=== PATIENT | female | born 1950 | race Caucasian/White ===

== ENCOUNTER 2017-08-29 14:59 | Observation (INO) | payer SELFPAY ==
--- NOTE | 2017-08-29 15:17 | XR_ITS ---
XR chest 2V HISTORY: ITS.REASON: COPD exacerbation ORDERING PHYSICIAN: Laura Reed MD PATIENT AGE: 67 years COMPARISON: 10/31/2015 PA and lateral chest, 07/07/2016 frontal chest FINDINGS: The cardiomediastinal silhouette and pulmonary vascularity are within normal limits. No lobar consolidation or collapse. There are old right-sided rib fractures. No lobar consolidation or collapse is evident. There is mild exaggeration of thoracic kyphosis with severe wedging involving T7 which is unchanged from the exam of 10/31/2015. There is new severe wedging of T9 which has developed since that exam. There is also moderate wedging of T5 present on the previous exam IMPRESSION: 1. No acute cardiac or pulmonary pathology. 2. Severe wedging of T7 and T9. The T9 wedging has developed since an older lateral radiograph of 10/31/2015. MRI may be of further value to determine age of the fractures and any possible cord compression
[2017-08-29 15:19] VITALS: BMI 28.8
[2017-08-29 15:25] VITALS: BP 152/97; PULSE 88; RESP 24; TEMP 36.1; O2SAT 92
--- NOTE | 2017-08-29 15:31 | HMH.HP ---
*Admission Date: 08/29/17 <Christina Pérez 08/29/17 15:32> *Chief complaint: SOA <Christina Pérez 08/29/17 15:32> *History of present illness: Ms. Fontana is a 67yo female who presented to the office of A today and has been out of her medications for a month. She has COPD and is on 2L of oxygen at home. She has had SOA and wheezing. Her sats have been in the 80's on RA. It was 87% on RA today in the office and she was placed on oxgyen. She has no insurance. She states she cannot afford portable oxygen. She was admitted with a COPD exacerbation and hypoxia. <Christina Pérez 08/29/17 17:24> [facility] History Medical History: Reports:: Cancer, Chronic Obstructive Pulmonary Disease (COPD), Diabetes Mellitus Type 2, Hypertension, Osteoporosis <Christina Pérez 08/29/17 17:24> Laterality Cases: Left: Lumpectomy <Christina Pérez 08/29/17 17:24> Other Surgeries: Yes: Appendectomy <Christina Pérez 08/29/17 17:24> Comment: Cholecystectomy, tubal ligation, sinus sx, lipoma removed left axilla, barium swallow <Christina Pérez 08/29/17 17:24> - *Social History Smoking Status: Former smoker <Christina Pérez 08/29/17 17:24> Tobacco Type: cigarettes <Christina Pérez 08/29/17 17:24> - Psychiatric History Expresses thoughts of harming self/others: None <Christina Pérez 08/29/17 15:32> Suicide Plan Description: No Plan <Christina Pérez 08/29/17 15:32> *Family Hx:: Cancer, Diabetes, Heart Attack, Hyperlipidemia, Hypertension, Stroke <Christina Pérez 08/29/17 17:24> Review of Systems - Constitutional Reports fatigue, Reports weakness, Denies fever(s) <Christina Pérez 08/29/17 17:24> - Eyes Denies blurry vision, Denies double vision <Christina Pérez 08/29/17 17:24> - ENT Denies nasal congestion, Denies sore throat <Christina Pérez - 08/29/17 17:24> - *Cardiovascular Denies chest pain <Christina Pérez 08/29/17 17:24> - *Respiratory Reports shortness of breath, Reports wheezing <Christina Pérez 08/29/17 17:24> - *Gastrointestinal Denies abdominal pain, Denies nausea, Denies vomiting <Christina Pérez 08/29/17 17:24> - *Genitourinary Denies difficulty urinating, Denies painful urination <Christina Pérez 08/29/17 17:24> - *Musculoskeletal Denies joint pain <Christina Pérez 08/29/17 17:24> - *Neurologic Reports weakness, Denies headache(s) <Christina Pérez 08/29/17 17:24> - Psychiatric Reports anxiety <Christina Pérez 08/29/17 17:24> Meds Home Medications Medication Instructions Recorded Confirmed Type Aspirin [Aspir 81] 81 mg PO DAILY 09/01/17 09/01/17 History <Mina Onofre - 10/13/17 21:43> Allergies Allergy/AdvReac Type Severity Reaction Status Date / Time Sulfa (Sulfonamide Allergy Mild Verified 08/29/17 18:48 Antibiotics) [SULFA (SULFONAMIDE ANTIBIOTICS)] <Mina Onofre - 10/13/17 21:43> Exam Vital signs and Labs for Last 24 Hours: Temp Pulse Resp BP Pulse Ox 97.0 F L 88 22 152/97 92 L 08/29/17 15:25 08/29/17 15:25 08/29/17 17:31 08/29/17 15:25 08/29/17 15:25 Laboratory Results - last 24 hr 08/29/17 15:15: WBC 7.4, RBC 5.10, Hgb 15.1, Hct 46.4, MCV 90.9, MCH 29.7, MCHC 32.6, RDW 12.8, Plt Count 323, MPV 7.5, Neut % (Auto) 54.8, Lymph % (Auto) 28.5, [place] % (Auto) 4.1, Eos % (Auto) 11.2, Baso % (Auto) 1.4, Neut # (Auto) 4.1, Lymph # (Auto) 2.1, [place] # (Auto) 0.3, Eos # (Auto) 0.8 H, Baso # (Auto) 0.1 08/29/17 15:15: Sodium 144, Potassium 4.6, Chloride 106, Carbon Dioxide 32, Anion Gap 10.6, BUN 10, Creatinine 0.79, Estimated Creat Clear 55, Estimated GFR 72, Est GFR ( Amer) 88, Glucose 111 H, Calcium 9.2, Total Bilirubin 0.4, AST 12 L, ALT 20, Alkaline Phosphatase 112, Total Protein 7.6, Albumin 4.0, Globulin 3.6 H, Albumin/Globulin Ratio 1.1 <Mina Onofre - 10/13/17 21:43> Temp Pulse Resp BP Pulse Ox 97.0 F L 88 24 152/97 92 L 08/29/17 15:25 08/29/17 15:25 08/29/17 15:25 08/29/17 15:25
--- NOTE | 2017-08-29 15:37 | PC.NURSE ---
PATIENT STATES SHE STOPPED TAKING ALL OF HER MEDS EXCEPT A BREATHING TREATMENT 3 WEEKS AGO
[2017-08-29 15:44] LABS: Basophils # 0.1 K/mm3 (0-0.2); Basophils % 1.4 % (0.1-2.0); Eosinophils # 0.8 K/mm3 (0.0-0.4); Eosinophils % 11.2 % (0.1-12.0); Hematocrit 46.4 % (37.0-47.0); Hemoglobin 15.1 g/dL (12.2-16.2); Lymphocytes # 2.1 K/mm3 (0.7-4.5); Lymphocytes % 28.5 K/mm3 (10-50); Mean Corpuscular HGB Conc 32.6 g/dL (31.8-35.4); Mean Corpuscular Hemoglobin 29.7 pg (27.0-31.2); Mean Corpuscular Volume 90.9 fl (81-99); Mean Platelet Volume 7.5 fl (7.4-10.4); Monocytes # 0.3 K/mm3 (0.1-1.0); Monocytes % 4.1 % (1.7-9.3); Neutrophils # 4.1 K/mm3 (1.8-7.8); Neutrophils % 54.8 % (37.0-80.0); Platelet Count 323 K/mm3 (142-424); Red Cell Distribution Width 12.8 % (11.5-17.5); White Blood Count 7.4 K/mm3 (4.8-10.8)
[2017-08-29 15:57] LABS: Alanine Aminotransferase 20 U/L (12-78); Albumin/Globulin Ratio 1.1 (1.1-1.8); Alkaline Phosphatase 112 U/L (46-116); Anion Gap 10.6 mEq/L (5-15); Aspartate Amino Transferase 12 U/L (15-37); Bilirubin,Total 0.4 mg/dL (0.2-1.0); Blood Urea Nitrogen 10 mg/dL (7-18); Calcium 9.2 mg/dL (8.5-10.1); Carbon Dioxide 32 mmol/L (21.0-32.0); Chloride 106 mmol/L (98-107); Creatinine Clearance Estimated 55 mL/min (0-300); Creatinine,Serum 0.79 mg/dL (0.55-1.02); Estimated Glomerular Filt Rate 72 ml/min (>60); GFR (African American) 88 ML/MIN (>60); Globulin 3.6 gm/dl (1.3-3.2); Glucose 111 mg/dL (74-106); Potassium 4.6 mmoL/L (3.5-5.1); Sodium 144 mmol/L (136-145); Total Protein,Serum 7.6 gm/dL (6.4-8.2)
[2017-08-29 17:31] VITALS: RESP 22
--- NOTE | 2017-08-29 18:11 | PC.NURSE ---
ELIDA-DUR 400MG PO NOT AVAILABLE. DR. BEAL INSTRUCTED TO GIVE AVAILABLE 300MG TABLET
[2017-08-29 19:17] VITALS: PULSE 100; PULSE 98; O2SAT 92
[2017-08-29 20:00] VITALS: BP 138/79; PULSE 89; RESP 22; TEMP 36.5; O2SAT 91
[2017-08-29 21:55] LABS: POC Glucose,Bedside 161 mg/dL
[2017-08-29 23:55] VITALS: PULSE 95; PULSE 98
[2017-08-30] VITALS (8 sets, daily range): BP systolic 101–131; BP diastolic 59–81; PULSE 80–106; RESP 20–24; TEMP 36.4–37.1; O2SAT 85–95
[2017-08-30 01:20] LABS: POC Glucose,Bedside 112 mg/dL
[2017-08-30 06:35] LABS: POC Glucose,Bedside 132 mg/dL
--- NOTE | 2017-08-30 10:33 | HMH.ACPN2 ---
Internal Medicine - PN: Subj *Date: 08/30/17 *Time: 10:33 Interval history: She feels much better this morning. Auscultation she still has a lot of wheezes and is very tight. She has minimal if any edema. Exam Vital signs and Labs for Last 24 Hours: Temp Pulse Resp BP Pulse Ox 98.1 F 105 H 20 118/72 95 08/30/17 07:42 08/30/17 07:42 08/30/17 07:42 08/30/17 07:42 08/30/17 07:42 Laboratory Results - last 24 hr 08/29/17 15:15: WBC 7.4, RBC 5.10, Hgb 15.1, Hct 46.4, MCV 90.9, MCH 29.7, MCHC 32.6, RDW 12.8, Plt Count 323, MPV 7.5, Neut % (Auto) 54.8, Lymph % (Auto) 28.5, [place] % (Auto) 4.1, Eos % (Auto) 11.2, Baso % (Auto) 1.4, Neut # (Auto) 4.1, Lymph # (Auto) 2.1, [place] # (Auto) 0.3, Eos # (Auto) 0.8 H, Baso # (Auto) 0.1 08/29/17 15:15: Sodium 144, Potassium 4.6, Chloride 106, Carbon Dioxide 32, Anion Gap 10.6, BUN 10, Creatinine 0.79, Estimated Creat Clear 55, Estimated GFR 72, Est GFR ( Amer) 88, Glucose 111 H, Calcium 9.2, Total Bilirubin 0.4, AST 12 L, ALT 20, Alkaline Phosphatase 112, Total Protein 7.6, Albumin 4.0, Globulin 3.6 H, Albumin/Globulin Ratio 1.1 08/29/17 16:19: POC Glucose 112 08/29/17 21:43: POC Glucose 161 08/30/17 06:05: POC Glucose 132 I & O for Last 24 hours: Intake & Output 08/27/17 08/28/17 08/29/17 08/30/17 11:59 11:59 11:59 11:59 Intake Total 480 / 480 Balance 480 / 480 Weight 142 lb 8 oz - Constitutional no acute distress - *Routine Respiratory Exam Present: decreased breath sounds, wheezes - *Routine Cardiovascular Exam Present: RRR - *Routine Abdominal Exam Present: soft. Absent: tenderness - *Routine Extremities Exam Absent: edema Assessment and Plan (1) COPD exacerbation Current visit: Yes Status: Acute Category: Medical Code(s): J44.1 - Chronic obstructive pulmonary disease with (acute) exacerbation (2) Hypoxia Current visit: Yes Status: Acute Category: Medical Code(s): R09.02 - Hypoxemia (3) Anxiety Current visit: Yes Status: Chronic Category: Medical Code(s): F41.9 - Anxiety disorder, unspecified (4) Type 2 diabetes mellitus Current visit: Yes Status: Chronic Category: Medical Code(s): E11.9 - Type 2 diabetes mellitus without complications (5) Hypertension Current visit: Yes Status: Chronic Category: Medical Code(s): I10 - Essential (primary) hypertension - Assessment and plan all Dx Assessment and Plan for all problems:: I will order Advair once a day. I will order prednisone daily. Other medicines are reviewed.
--- NOTE | 2017-08-30 10:36 | P.PN_ITS ---
Internal Medicine - PN: Subj *Date: 08/30/17 *Time: 10:33 Interval history: She feels much better this morning. Auscultation she still has a lot of wheezes and is very tight. She has minimal if any edema. Exam Vital signs and Labs for Last 24 Hours: Temp Pulse Resp BP Pulse Ox 98.1 F 105 H 20 118/72 95 08/30/17 07:42 08/30/17 07:42 08/30/17 07:42 08/30/17 07:42 08/30/17 07:42 Laboratory Results - last 24 hr 08/29/17 15:15: WBC 7.4, RBC 5.10, Hgb 15.1, Hct 46.4, MCV 90.9, MCH 29.7, MCHC 32.6, RDW 12.8, Plt Count 323, MPV 7.5, Neut % (Auto) 54.8, Lymph % (Auto) 28.5 , [place] % (Auto) 4.1, Eos % (Auto) 11.2, Baso % (Auto) 1.4, Neut # (Auto) 4.1, Lymph # (Auto) 2.1, [place] # (Auto) 0.3, Eos # (Auto) 0.8 H, Baso # (Auto) 0.1 08/29/17 15:15: Sodium 144, Potassium 4.6, Chloride 106, Carbon Dioxide 32, Anion Gap 10.6, BUN 10, Creatinine 0.79, Estimated Creat Clear 55, Estimated GFR 72, Est GFR ( Amer) 88, Glucose 111 H, Calcium 9.2, Total Bilirubin 0.4, AST 12 L, ALT 20, Alkaline Phosphatase 112, Total Protein 7.6, Albumin 4.0 , Globulin 3.6 H, Albumin/Globulin Ratio 1.1 08/29/17 16:19: POC Glucose 112 08/29/17 21:43: POC Glucose 161 08/30/17 06:05: POC Glucose 132 I & O for Last 24 hours: Intake & Output 08/27/17 08/28/17 08/29/17 08/30/17 11:59 11:59 11:59 11:59 Intake Total 480 / 480 Balance 480 / 480 Weight 142 lb 8 oz - Constitutional no acute distress - *Routine Respiratory Exam Present: decreased breath sounds, wheezes - *Routine Cardiovascular Exam Present: RRR - *Routine Abdominal Exam Present: soft. Absent: tenderness - *Routine Extremities Exam Absent: edema Assessment and Plan (1) COPD exacerbation Current visit: Yes Status: Acute Category: Medical Code(s): J44.1 - Chronic obstructive pulmonary disease with (acute) exacerbation (2) Hypoxia Current visit: Yes Status: Acute Category: Medical Code(s): R09.02 - Hypoxemia (3) Anxiety Current visit: Yes Status: Chronic Category: Medical Code(s): F41.9 - Anxiety disorder, unspecified (4) Type 2 diabetes mellitus Current visit: Yes Status: Chronic Category: Medical Code(s): E11.9 - Type 2 diabetes mellitus without complications (5) Hypertension Current visit: Yes Status: Chronic Category: Medical Code(s): I10 - Essential (primary) hypertension - Assessment and plan all Dx Assessment and Plan for all problems:: I will order Advair once a day. I will order prednisone daily. Other medicines are reviewed.
[2017-08-30 11:45] LABS: POC Glucose,Bedside 119 mg/dL
--- NOTE | 2017-08-30 14:33 | HMH.PHAVTE ---
[facility] Pharmacy VTE Monitoring - Patient Demographics Admission date: 08/29/17 Report Date: 08/30/17 Time: 14:34 Allergies/Adverse Reactions: Patient Allergies Sulfa (Sulfonamide Antibiotics) [SULFA (SULFONAMIDE ANTIBIOTICS)] Allergy (Mild, Verified 08/29/17 18:48) Height: 1.5 m Weight: 64.637 kg Patient Problems: Current Active Problems COPD exacerbation (Acute) Anxiety (Chronic) Hypoxia (Acute) Type 2 diabetes mellitus (Chronic) Hypertension (Chronic) - VTE Risk Labs: VTE Related Lab Results Hgb 15.1 g/dL (12.2-16.2) 08/29/17 15:15 Hct 46.4 % (37.0-47.0) 08/29/17 15:15 Plt Count 323 K/mm3 (142-424) 08/29/17 15:15 BUN 10 mg/dL (7-18) 08/29/17 15:15 Creatinine 0.79 mg/dL (0.55-1.02) 08/29/17 15:15 Estimated Creat Clear 55 mL/min (0-300) 08/29/17 15:15 Was VTE Risk Assessment Performed: Yes VTE Score: 3 VTE Risk Level: Low Risk - Prophylaxis VTE Prophylaxis Ordered?: Yes Types of VTE Prophylaxis: TEDS Knee High Location of Applied Device: Bilateral Lower Extremeties
[2017-08-30 16:37] LABS: POC Glucose,Bedside 151 mg/dL
--- NOTE | 2017-08-30 17:20 | PC.NURSE ---
PATIENT RESTING IN BED WITH FAMILY AT BEDSIDE. PATIENT STATES THAT THE GRANDDAUGHTER THAT BROUGHT HER TO THE ER YESTERDAY HAS THE FLU TODAY. PATIENT DENIES ANY NEEDS. VITAL SIGNS STABLE, LUNG SOUNDS CONTINUE TO HAVE RHONCHI. WILL CONTINUE TO MONITOR.
[2017-08-30 20:30] LABS: POC Glucose,Bedside 215 mg/dL
[2017-08-31] VITALS (10 sets, daily range): BP systolic 103–145; BP diastolic 61–84; PULSE 69–97; RESP 18–20; TEMP 36.2–37.3; O2SAT 87–97; BMI 28.5
[2017-08-31 06:19] LABS: POC Glucose,Bedside 94 mg/dL
--- NOTE | 2017-08-31 06:35 | PC.NURSE ---
Patient resting in bed quietly. No complaints voiced this shift. No signs or symptoms of distress noted.
[2017-08-31 07:28] LABS: Alanine Aminotransferase 22 U/L (12-78); Albumin Level 3.4 gm/dL (3.4-5.0); Albumin/Globulin Ratio 1.1 (1.1-1.8); Alkaline Phosphatase 89 U/L (46-116); Aspartate Amino Transferase 17 U/L (15-37); Bilirubin,Total 0.4 mg/dL (0.2-1.0); Blood Urea Nitrogen 27 mg/dL (7-18); Calcium 8.6 mg/dL (8.5-10.1); Carbon Dioxide 31 mmol/L (21.0-32.0); Chloride 104 mmol/L (98-107); Creatinine Clearance Estimated 55 mL/min (0-300); Creatinine,Serum 0.93 mg/dL (0.55-1.02); Estimated Glomerular Filt Rate 60 ml/min (>60); GFR (African American) 73 ML/MIN (>60); Globulin 3.2 gm/dl (1.3-3.2); Glucose 99 mg/dL (74-106); Sodium 141 mmol/L (136-145); Total Protein,Serum 6.6 gm/dL (6.4-8.2)
[2017-08-31 07:33] LABS: Hemoglobin A1C 5.9 % (0.0-7.0)
[2017-08-31 12:05] LABS: POC Glucose,Bedside 150 mg/dL
--- NOTE | 2017-08-31 15:06 | HMH.ACPN2 ---
Internal Medicine - PN: Subj *Date: 08/31/17 *Time: 15:06 Interval history: She is doing well. She is tremulous after her nebulizer treatments. Her heart rate goes up after nebulizer treatments. She rested okay last night. Exam Vital signs and Labs for Last 24 Hours: Temp Pulse Resp BP Pulse Ox 98.1 F 71 18 110/70 92 L 08/31/17 07:39 08/31/17 13:26 08/31/17 07:39 08/31/17 07:39 08/31/17 08:00 Laboratory Results - last 24 hr 08/30/17 16:21: POC Glucose 151 08/30/17 20:10: POC Glucose 215 08/31/17 05:58: POC Glucose 94 08/31/17 06:05: Sodium 141, Potassium 4.0, Chloride 104, Carbon Dioxide 31, Anion Gap 10.0, BUN 27 H D, Creatinine 0.93, Estimated Creat Clear 55, Estimated GFR 60, Est GFR ( Amer) 73, Glucose 99, Calcium 8.6, Total Bilirubin 0.4, AST 17 D, ALT 22, Alkaline Phosphatase 89, Total Protein 6.6, Albumin 3.4, Globulin 3.2, Albumin/Globulin Ratio 1.1 08/31/17 06:05: Hemoglobin A1c 5.9 08/31/17 11:48: POC Glucose 150 Selected Entries 08/31/17 03:15 08/31/17 04:00 08/31/17 07:39 02 Sat by Pulse Oximetry 87 L 97 96 08/31/17 08:00 02 Sat by Pulse Oximetry 92 L Laboratory Tests 08/29/17 08/30/17 08/30/17 15:15 16:21 20:10 WBC 7.4 Hgb 15.1 Hct 46.4 Sodium Potassium BUN Creatinine POC Glucose 151 215 Hemoglobin A1c 08/31/17 08/31/17 08/31/17 05:58 06:05 06:05 WBC Hgb Hct Sodium 141 Potassium 4.0 BUN 27 H D Creatinine 0.93 POC Glucose 94 Hemoglobin A1c 5.9 08/31/17 11:48 WBC Hgb Hct Sodium Potassium BUN Creatinine POC Glucose 150 Hemoglobin A1c I & O for Last 24 hours: Intake & Output 08/29/17 08/30/17 08/31/17 09/01/17 11:59 11:59 11:59 11:59 Intake Total 480 / 480 650 / 650 Balance 480 / 480 650 / 650 Weight 142 lb 8 oz 141 lb 7 oz - Constitutional no acute distress - *Routine Respiratory Exam Present: rhonchi (Bilateral) Comments: She is moving air better but still has decreased breath sounds and scattered rhonchi and some wheezes. - *Routine Cardiovascular Exam Present: tachycardia Comments: 120 - *Routine Extremities Exam Present: edema (Minimal edema) Assessment and Plan (1) COPD exacerbation Current visit: Yes Status: Acute Category: Medical Code(s): J44.1 - Chronic obstructive pulmonary disease with (acute) exacerbation (2) Hypoxia Current visit: Yes Status: Acute Category: Medical Code(s): R09.02 - Hypoxemia (3) Anxiety Current visit: Yes Status: Chronic Category: Medical Code(s): F41.9 - Anxiety disorder, unspecified (4) Type 2 diabetes mellitus Current visit: Yes Status: Chronic Category: Medical Code(s): E11.9 - Type 2 diabetes mellitus without complications (5) Hypertension Current visit: Yes Status: Chronic Category: Medical Code(s): I10 - Essential (primary) hypertension - Assessment and plan all Dx Assessment and Plan for all problems:: Continue present regimen. She requests her at bedtime baby aspirin
[2017-08-31 21:08] LABS: POC Glucose,Bedside 181 mg/dL
[2017-08-31 21:08] LABS: POC Glucose,Bedside 171 mg/dL
[2017-09-01] VITALS (9 sets, daily range): BP systolic 107–125; BP diastolic 62–73; PULSE 70–96; RESP 18–20; TEMP 36.1–36.8; O2SAT 88–96
[2017-09-01 06:16] LABS: POC Glucose,Bedside 95 mg/dL
--- NOTE | 2017-09-01 10:11 | HMH.ACPN2 ---
Internal Medicine - PN: Subj *Date: 09/01/17 *Time: 10:11 Interval history: Seems to be doing better. Does not rest well as a rule. Still with tight cough. Exam Vital signs and Labs for Last 24 Hours: Temp Pulse Resp BP Pulse Ox 97.9 F 89 20 109/62 96 09/01/17 08:00 09/01/17 08:00 09/01/17 08:00 09/01/17 08:00 09/01/17 08:00 Laboratory Results - last 24 hr 08/31/17 11:48: POC Glucose 150 08/31/17 16:55: POC Glucose 181 08/31/17 20:52: POC Glucose 171 09/01/17 06:05: POC Glucose 95 I & O for Last 24 hours: Intake & Output 08/29/17 08/30/17 08/31/17 09/01/17 11:59 11:59 11:59 11:59 Intake Total 480 / 480 1300 / 1300 960 / 960 Output Total 200 / 200 Balance 480 / 480 1300 / 1300 760 / 760 Weight 142 lb 8 oz 141 lb 7 oz 143 lb 2 oz - Constitutional no acute distress - *Routine HEENT Exam Eye: Present: PERRL ENT: Present: mucous membranes moist - *Routine Respiratory Exam Present: rhonchi, wheezes Comments: better air movement - *Routine Extremities Exam Comments: no edema Assessment and Plan (1) COPD exacerbation Current visit: Yes Status: Acute Category: Medical Code(s): J44.1 - Chronic obstructive pulmonary disease with (acute) exacerbation (2) Hypoxia Current visit: Yes Status: Acute Category: Medical Code(s): R09.02 - Hypoxemia (3) Anxiety Current visit: Yes Status: Chronic Category: Medical Code(s): F41.9 - Anxiety disorder, unspecified (4) Type 2 diabetes mellitus Current visit: Yes Status: Chronic Category: Medical Code(s): E11.9 - Type 2 diabetes mellitus without complications (5) Hypertension Current visit: Yes Status: Chronic Category: Medical Code(s): I10 - Essential (primary) hypertension - Assessment and plan all Dx Assessment and Plan for all problems:: continue Rx. Home tomorrow?
[2017-09-01 12:04] LABS: POC Glucose,Bedside 128 mg/dL
--- NOTE | 2017-09-01 14:31 | PC.NURSE ---
Denies any new issues at this time. Resting comfortable in bed. Up to bathroom t/o this shift and tolerated well. Denies any SOA this shift. 2L NC is in place. call light is in reach. will continue to monitor
--- NOTE | 2017-09-01 15:20 | PC.NURSE ---
Talked with pt that she is in observation and that while here they will charge her for any medicine that were given from our stock. PT acknowledge that she understood she will pay out of pocket and that her insurance will not cover it.
--- NOTE | 2017-09-01 15:35 | DIET.NUTRFU ---
Patient reports she has lost approx 40 lbs over the past year. She cannot state whether she had a decrease in appetite or po intakes. She does have copd exacerbations and this may reflect increased energy expenditures. Her blood sugars have been excellent and she no longer follows a diabetic diet at home. FSBS 95,171,181. PO intakes are 100% of meals. Diet is diabetic. She desires weight gain. Her bmi is 28.9. Encouraged weight maintenance. Educated on nutritional supplements, Ensure and Glucerna if weight loss continues.
[2017-09-01 16:42] LABS: POC Glucose,Bedside 157 mg/dL
[2017-09-02 00:10] VITALS: PULSE 90; PULSE 92
--- NOTE | 2017-09-02 03:29 | PC.NURSE ---
Pt denies pain this shift, has rested on and off, with no c/o SOA. Pt tolerating 2L o2 NC well, RA sats remain 87-88%. Wheezing and rhonchi noted during lung auscultation. BS active in all 4 qauds. LBM 09/01/17. A&Ox3. VSS. No acute distress noted. Will continue to monitor.
[2017-09-02 04:00] VITALS: BP 104/69; PULSE 89; RESP 18; TEMP 37.4; O2SAT 94
[2017-09-02 05:50] VITALS: PULSE 91; PULSE 95; O2SAT 93
[2017-09-02 08:00] VITALS: BP 108/66; PULSE 103; RESP 18; TEMP 36.8; O2SAT 92
--- NOTE | 2017-09-02 08:26 | HMH.ACPN2 ---
Internal Medicine - PN: Subj *Date: 09/02/17 *Time: 08:26 Interval history: Thinks she is doing better. Breathing is better. Does not have much much of a cough. O2 sats do drop below 90 without oxygen. She has been eating well. She ambulates to the bathroom.. Exam Vital signs and Labs for Last 24 Hours: Temp Pulse Resp BP Pulse Ox 98.3 F 103 H 18 108/66 92 L 09/02/17 08:00 09/02/17 08:00 09/02/17 08:00 09/02/17 08:00 09/02/17 08:00 Laboratory Results - last 24 hr 09/01/17 11:41: POC Glucose 128 09/01/17 16:20: POC Glucose 157 I & O for Last 24 hours: Intake & Output 08/30/17 08/31/17 09/01/17 09/02/17 11:59 11:59 11:59 11:59 Intake Total 480 / 480 1300 / 1300 960 / 960 1210 / 1210 Output Total 200 / 200 800 / 800 Balance 480 / 480 1300 / 1300 760 / 760 410 / 410 Weight 142 lb 8 oz 141 lb 7 oz 143 lb 2 oz 143 lb - Constitutional no acute distress - *Routine Respiratory Exam Comments: Some scattered wheezing. No dyspnea with talking - *Routine Cardiovascular Exam Present: RRR - *Routine Abdominal Exam Present: soft, normoactive bowel sounds. Absent: tenderness, distended - *Routine Extremities Exam Present: full ROM. Absent: edema - *Routine Neurological Exam Present: alert, oriented X3 Assessment and Plan (1) COPD exacerbation Current visit: Yes Status: Acute Category: Medical Code(s): J44.1 - Chronic obstructive pulmonary disease with (acute) exacerbation (2) Hypoxia Current visit: Yes Status: Acute Category: Medical Code(s): R09.02 - Hypoxemia (3) Anxiety Current visit: Yes Status: Chronic Category: Medical Code(s): F41.9 - Anxiety disorder, unspecified (4) Type 2 diabetes mellitus Current visit: Yes Status: Chronic Category: Medical Code(s): E11.9 - Type 2 diabetes mellitus without complications (5) Hypertension Current visit: Yes Status: Chronic Category: Medical Code(s): I10 - Essential (primary) hypertension - Assessment and plan all Dx Assessment and Plan for all problems:: We will continue with current care. Possibly home today.
--- NOTE | 2017-09-02 08:58 | PC.NURSE ---
REPORT GIVEN TO Roxy WADSWORTH RN
[2017-09-02 11:01] VITALS: PULSE 94; PULSE 97
[2017-09-02 11:26] LABS: POC Glucose,Bedside 171 mg/dL
[2017-09-02 11:26] LABS: POC Glucose,Bedside 109 mg/dL
[2017-09-02 11:26] LABS: POC Glucose,Bedside 137 mg/dL
--- NOTE | 2017-09-02 21:19 | HMH.DCSUM ---
General - General Admission date: 08/29/17 Discharge date: 09/02/17 HPI HPI: Ms. Fontana is a 67yo female who presented to the office of [facility] today and has been out of her medications for a month. She has COPD and is on 2L of oxygen at home. She has had SOA and wheezing. Her sats have been in the 80's on RA. It was 87% on RA today in the office and she was placed on oxgyen. She has no insurance. She states she cannot afford portable oxygen. She was admitted with a COPD exacerbation and hypoxia. Objective Vital signs: Temp Pulse Resp BP Pulse Ox 98.3 F 97 H 18 108/66 92 L 09/02/17 08:00 09/02/17 11:01 09/02/17 08:00 09/02/17 08:00 09/02/17 08:00 Narrative: - Constitutional Comments: Dyspneic - *Routine HEENT Exam Head: Present: normocephalic, atraumatic Eye: Present: EOMI, PERRL ENT: Present: mucous membranes moist - *Routine Neck Exam Present: supple, full ROM - *Routine Respiratory Exam Present: rhonchi, wheezes - *Routine Cardiovascular Exam Present: RRR - *Routine Abdominal Exam Present: soft, normoactive bowel sounds. Absent: tenderness - *Routine Extremities Exam Present: edema - *Routine Skin Exam Present: intact - *Routine Neurological Exam Present: alert, oriented X3 Hospital Course Hospital Course: Her CXR showed nothing acute. She was started on duonebs, oxygen, and steroids. She improved throughout her stay and was stable to be discharged home with medication refills. Results Labs on day of discharge: Labs from last 24 hours 09/02/17 09/02/17 09/01/17 11:13 07:12 21:25 POC Glucose 137 109 171 DS: Diagnosis - Discharge Diagnosis (1) COPD exacerbation Status: Acute (2) Hypoxia Status: Acute (3) Anxiety Status: Chronic (4) Type 2 diabetes mellitus Status: Chronic (5) Hypertension Status: Chronic Discharge Plan - Patient Discharge Instructions DIET: continue same diet Patient Instructions: DI for Chronic Obstructive Pulmonary Disease, DI for Anxiety -- Adult - Follow up Plan Follow up with: Laura Reed MD [Primary Care Provider] - 1 week Disposition: Home, Self-Group Home Medications: Home Medications Medication Instructions Recorded Confirmed Type Aspirin [Aspir 81] 81 mg PO DAILY 09/01/17 09/01/17 History Prescriptions/Medication Reconciliation: New Furosemide [Lasix 40mg tablet] 40 mg PO DAILY 30 Days tablet Ipratropium/Albuterol Sulfate [Duoneb 3mL neb] 3 ml IH TIDP PRN #90 ampul.neb PRN Reason: shortness of breath Losartan Potassium 25 mg PO DAILY 30 Days tab diazePAM [diazePAM 5mg Tablet] 5 mg PO TIDP PRN #90 tab PRN Reason: Anxiety Continue Aspirin [Aspir 81] 81 mg PO DAILY Theophylline Anhydrous [Theophylline] 300 mg PO DAILY #30 tab.er.24h Discontinued Lisinopril [Lisinopril 2.5mg Tab] 2.5 mg PO DAILY
== END 2017-09-02 14:50 | disposition home or self-care (01) ==
PROVIDERS: Physician Assistant; Admitting Provider Family Medicine; PCP Family Medicine; Visit Provider Family Medicine
DX: J44.1 Chronic obstructive pulmonary disease with (acute) exacerbation (principal); R09.02 Hypoxemia; Z99.81 Dependence on supplemental oxygen; Z85.9 Personal history of malignant neoplasm, unspecified; E11.9 Type 2 diabetes mellitus without complications; I10 Essential (primary) hypertension; Z87.891 Personal history of nicotine dependence; Z80.9 Family history of malignant neoplasm, unspecified; Z83.3 Family history of diabetes mellitus; Z83.49 Family history of other endocrine, nutritional and metabolic diseases; Z82.3 Family history of stroke; F41.9 Anxiety disorder, unspecified
CPT/HCPCS: 71046; 80053; 82962; 83036; 85025; 94640; 94760; 94761; G0378

== ENCOUNTER 2018-01-09 19:06 | Inpatient (IN) ==
[2018-01-09 19:48] LABS: Basophils # 0.1 K/mm3 (0-0.2); Basophils % 1.5 % (0.1-2.0); Eosinophils % 15.4 % (0.1-12.0); Hematocrit 44.2 % (37.0-47.0); Hemoglobin 14.2 g/dL (12.2-16.2); Mean Corpuscular HGB Conc 32.2 g/dL (31.8-35.4); Mean Corpuscular Hemoglobin 29.1 pg (27.0-31.2); Mean Corpuscular Volume 90.4 fl (81-99); Mean Platelet Volume 7.3 fl (7.4-10.4); Monocytes # 0.4 K/mm3 (0.1-1.0); Monocytes % 6.7 % (1.7-9.3); Neutrophils # 2.7 K/mm3 (1.8-7.8); Neutrophils % 43.4 % (37.0-80.0); Platelet Count 293 K/mm3 (142-424); Red Blood Count 4.89 M/mm3 (4.20-5.40); Red Cell Distribution Width 12.8 % (11.5-17.5); White Blood Count 6.2 K/mm3 (4.8-10.8)
[2018-01-09 19:55] LABS: Anion Gap 8.8 mEq/L (5-15); Potassium 3.8 mmoL/L (3.5-5.1)
--- NOTE | 2018-01-09 20:29 | Emergency Department Note ---
ED Disposition Clinical Impression: Acute exacerbation of chronic obstructive airways disease Disposition: Admitted as Observation Condition on Discharge: Good Referrals: Laura Reed MD [Primary Care Provider] - - Critical Care Critical Care Time: No Attestation: On 01/09/18, the high probability of a clinically significant, sudden or life threatening deterioration of the following system(s) required my full and direct attention, intervention and personal management. The time I documented below is in addition to time spent performing reported procedures but includes the following listed in this critical care notation. Medical Decision Making - Medical Records Medical records reviewed: Yes: I reviewed the patient's medical records. - Mkial Inquiry Pt receiving controlled substance: No Vital Signs: 01/09/18 19:10 01/09/18 19:27 01/09/18 19:43 Temperature 98.6 F Temperature Source Oral Pulse Rate 86 Pulse Rate [Right Brachial] 86 Respiratory Rate 20 Blood Pressure [Right Arm] 143/89 Blood Pressure Mean [Right Arm] 107 Blood Pressure Source [Right Arm] Automatic Cuff Blood Pressure Position [Right Arm] Sitting 02 Sat by Pulse Oximetry 83 L 93 L Oxygen Delivery Method Room Air Oxygen Flow Rate (LPM) 4 01/09/18 20:21 Temperature Temperature Source Pulse Rate Pulse Rate [Right Brachial] 82 Respiratory Rate 22 Blood Pressure [Right Arm] 116/75 Blood Pressure Mean [Right Arm] 88 Blood Pressure Source [Right Arm] Automatic Cuff Blood Pressure Position [Right Arm] Sitting 02 Sat by Pulse Oximetry 93 L Oxygen Delivery Method Nasal Cannula Oxygen Flow Rate (LPM) 3 - Lab Data Lab results reviewed: Yes: I reviewed the patient's lab results. Lab Results 01/09/18 19:30: WBC 6.2, RBC 4.89, Hgb 14.2, Hct 44.2, MCV 90.4, MCH 29.1, MCHC 32.2, RDW 12.8, Plt Count 293, MPV 7.3 L, Neut % (Auto) 43.4, Lymph % (Auto) 33.0, [place] % (Auto) 6.7, Eos % (Auto) 15.4 H, Baso % (Auto) 1.5, Neut # (Auto) 2.7, Lymph # (Auto) 2.0, [place] # (Auto) 0.4, Eos # (Auto) 1.0 H, Baso # (Auto) 0.1 01/09/18 19:30: Troponin I < 0.02 01/09/18 19:30: Lactic Acid 0.3 L 01/09/18 19:30: Sodium 139, Potassium 3.8, Chloride 101, Carbon Dioxide 33 H, Anion Gap 8.8, BUN 13, Creatinine 1.02, Estimated Creat Clear 55, Estimated GFR 54 L, Est GFR ( Amer) 65, Glucose 102, Calcium 9.0 Result diagrams: 01/09/18 19:30 01/09/18 19:30 Orders (Tests/Meds): ED MEDICATIONS Discontinued Medications Generic Name Dose Route Start Last Admin Trade Name Freq PRN Reason Stop Dose Admin Albuterol/Ipratropium 3 ml 01/09/18 19:30 01/09/18 19:36 Duoneb 3ml Neb IH 01/09/18 19:31 3 ml ONCE ONE Administration Methylprednisolone Sodium Succinate 125 mg 01/09/18 19:31 01/09/18 19:36 Solu-Medrol 125mg/2ml Vial IV 01/09/18 19:32 125 mg ONCE ONE Administration ORDERS Category Date Time Status Chest XR -- portable [XR chest portable] Stat Exams 01/09/18 19:30 Taken Blood Culture Stat Micro 01/09/18 19:30 Received 12-lead EKG Request [ECG Request by /Booker] Stat Y 01/09/18 19:30 Ordered - Radiology Data #1 Image(s): Chest Image Reviewed: Yes I reviewed the patient's radiology image Preliminary Findings: Abnormal (nonspecific) - ECG Data Tracing #1 I reviewed this ECG and interpreted as documented below: Normal Sinus Rhythm: Yes Ischemic changes: non-specific ST-T wave changes - Physician Consults Physician Consulted: edgar Reason -: Admission Resp/SOB HPI - General Chief Complaint: Shortness of Breath/Dyspnea Stated Complaint: SOB Time Seen by Provider: 01/09/18 20:00 Mode of Arrival: Wheelchair Source of Information: Patient, Relative Limitations: No Limitations Description of Symptoms (Recalled from ER Triage Doc. by RN): Pt states she is SOA for about 5 days now and got worse today. Pt has a hx of COPD and used home Oxygen and states it hasn't been working. Pt denies any pain or other symptoms. - History of Present Illness over the last few days with inc sob with no fever or hemoptysis and no chest pain MD Complaint: shortness of breath Onset (ago): day(s) Severity: moderate Known history of: COPD Associated symptoms: denies other symptoms Treatment prior to arrival: bronchodilator - Related Data Home oxygen amount: 2 liters Home Medications Medication Instructions Recorded Confirmed Aspirin [Aspir 81] 81 mg PO DAILY 09/01/17 01/09/18 Furosemide [Lasix 40mg tablet] 40 mg PO DAILY 01/09/18 01/09/18 Losartan Potassium 25 mg PO DAILY 01/09/18 01/09/18 Previous Rx's Medication Instructions Recorded Ipratropium/Albuterol Sulfate 3 ml IH TIDP PRN #90 ampul.neb 09/02/17 [Duoneb 3mL neb] diazePAM [diazePAM 5mg Tablet] 5 mg PO TIDP PRN #90 tab 09/02/17 Allergies Allergy/AdvReac Type Severity Reaction Status Date / Time Sulfa (Sulfonamide Allergy Mild Verified 08/29/17 18:48 Antibiotics) [SULFA (SULFONAMIDE ANTIBIOTICS)] cyclobenzaprine AdvReac Verified 01/09/18 19:35 [From Flexeril] gabapentin AdvReac Verified 01/09/18 19:35 [facility] History I have reviewed the patient's past medical history: Yes Medical History: Reports:: Cancer, Chronic Obstructive Pulmonary Disease (COPD) , Diabetes Mellitus Type 2, Hypertension, Osteoporosis Denies:: MRSA Other Medical History: Reports: Osteoporosis Laterality Cases: Left: Lumpectomy Other Surgeries: Yes: Appendectomy, Tubal Ligation, Other (NOSE SURGERY, LUMPECTOMY LEFT BREAST) Amputation: No Fractures: No Comment: Cholecystectomy, tubal ligation, sinus sx, lipoma removed left axilla, barium swallow - Social History Smoking Status: Former smoker Tobacco Type: cigarettes Alcohol Intake: never Occupational Status: retired Housing: house Household Members: spouse - Psychiatric History Expresses thoughts of harming self/others: None Suicide Plan Description: No Plan Family Hx:: Cancer, Diabetes, Heart Attack, Hyperlipidemia, Hypertension, Stroke ROS Obtained: Yes All systems reviewed & no additional complaints - Constitutional Constitutional: Denies fever(s) - Eyes Eyes: Denies change in vision - ENT Ears, Nose, Mouth, and Throat: Denies sore throat - Cardiovascular Cardiovascular: Denies chest pain - Respiratory Respiratory: Yes cough, Yes dyspnea, No coughing up blood - Gastrointestinal Gastrointestingal: Denies: abdominal pain - Genitourinary Female Genitourinary: Denies hematuria - Musculoskeletal Musculoskeletal: Denies joint pain, Denies joint swelling - Integumentary/Breasts Skin/Breast: Denies rash - Neurologic Neurologic: Denies headache(s), Denies seizure-like activity Physical Exam - General General appearance: in no apparent distress - Head Head exam: normocephalic - Eye Eye exam: Present: PERRL, EOMI - ENT ENT exam: Present: mucous membranes moist - Neck Neck exam: Present: trachea midline - Respiratory Respiratory exam: Present: other (bilat rhonchi ). Absent: respiratory distress - Cardiovascular Cardiovascular exam: Present: regular rate, systolic murmur, +S4 - Abdominal Exam Abdominal exam: Present: soft - Extremities Exam Extremities exam: Present: full ROM - Neurological Exam Neurological exam: Present: alert, oriented X3, CN II-XII intact - Psychiatric Psychiatric exam: Present: normal affect - Skin Skin exam: Absent: rash
[2018-01-10 03:58] LABS: Basophils % 1.1 % (0.1-2.0); Eosinophils % 0.6 % (0.1-12.0); Hematocrit 38.6 % (37.0-47.0); Hemoglobin 14.2 g/dL (12.2-16.2); Lymphocytes # 0.7 K/mm3 (0.7-4.5); Lymphocytes % 18.4 K/mm3 (10-50); Mean Corpuscular HGB Conc 36.7 g/dL (31.8-35.4); Mean Corpuscular Hemoglobin 33.2 pg (27.0-31.2); Mean Corpuscular Volume 90.4 fl (81-99); Mean Platelet Volume 7.2 fl (7.4-10.4); Monocytes # 0.1 K/mm3 (0.1-1.0); Monocytes % 1.5 % (1.7-9.3); Neutrophils # 2.9 K/mm3 (1.8-7.8); Neutrophils % 78.4 % (37.0-80.0); Platelet Count 259 K/mm3 (142-424); Red Blood Count 4.28 M/mm3 (4.20-5.40); Red Cell Distribution Width 12.8 % (11.5-17.5); White Blood Count 3.7 K/mm3 (4.8-10.8)
[2018-01-10 04:36] LABS: Anion Gap 9.3 mEq/L (5-15); Blood Urea Nitrogen 15 mg/dL (7-18); Calcium 8.5 mg/dL (8.5-10.1); Carbon Dioxide 29 mmol/L (21.0-32.0); Chloride 103 mmol/L (98-107); Potassium 4.3 mmoL/L (3.5-5.1); Sodium 137 mmol/L (136-145)
[2018-01-10 04:45] LABS: Glucose 184 mg/dL (74-106)
--- NOTE | 2018-01-10 11:45 | History & Physical Report ---
*Admission Date: 01/09/18 *Chief complaint: Shortness of breath, wheezing *History of present illness: This 67-year-old white female has long-standing chronic obstructive lung disease and asthmatic bronchitis. She states that she has been sick for 5 days and did not have the money to come to be seen in the office. She presented in the emergency room last night with shortness of breath and wheezing. She was found to have an exacerbation of her asthmatic bronchitis and chronic lung disease. She was admitted for further evaluation and treatment. She has a productive cough. She has not had fever. She has had some upper respiratory congestion and irritated throat but mainly this is been a chest problem. She has numerous similar episodes in the past. [facility] History I have reviewed the patient's past medical history: Yes Medical History: Reports:: Asthma, Cancer, Chronic Obstructive Pulmonary Disease (COPD), Diabetes Mellitus Type 2, Hypertension, Osteoporosis Denies:: Diabetes Mellitus Type 1, MRSA Other Medical History: Reports: Chemotherapy (For breast cancer and resection), Osteoporosis, Sinus Problems Laterality Cases: Left: Lumpectomy Other Surgeries: Yes: Appendectomy, Cholecystectomy, Tubal Ligation, Other ( NOSE SURGERY, LUMPECTOMY LEFT BREAST) Amputation: No Fractures: No - *Social History Educational Level: Attended High School Smoking Status: Former smoker Tobacco Type: cigarettes Alcohol Intake: never Substance Use Type: denies use Occupational Status: retired (Worked around [employer] for years.) Housing: house Household Members: spouse - Psychiatric History Expresses thoughts of harming self/others: None Suicide Plan Description: No Plan *Family Hx:: Cancer, Diabetes, Heart Attack, Hyperlipidemia, Hypertension, Stroke Review of Systems - Constitutional Reports fatigue, Reports lack of energy, Denies chills, Denies fever(s) - Eyes Reports bulging eyes (History of some degree of exophthalmos), Denies change in vision - ENT Reports sore throat, Denies abnormal hearing, Denies change in voice, Denies mouth lesions - *Cardiovascular Denies chest pain, Denies leg swelling, Denies rapid, pounding, or irregular heartbeat - *Respiratory Reports change in phlegm color, Reports chest congestion, Reports cough, Reports shortness of breath, Reports shortness of breath with activity - *Gastrointestinal Denies abdominal pain - *Musculoskeletal Reports back pain, Reports deformity (History of compression fractures of the vertebrae) - Integumentary/Breasts Denies bleeding lesions - *Neurologic Denies headache(s), Denies seizure-like activity Meds Home Medications Medication Instructions Recorded Confirmed Type Aspirin [Aspir 81] 81 mg PO DAILY 09/01/17 01/09/18 History Furosemide [Lasix 40mg tablet] 40 mg PO DAILY 01/09/18 01/09/18 History Losartan Potassium 25 mg PO DAILY 01/09/18 01/09/18 History Allergies Allergy/AdvReac Type Severity Reaction Status Date / Time Sulfa (Sulfonamide Allergy Mild Verified 08/29/17 18:48 Antibiotics) [SULFA (SULFONAMIDE ANTIBIOTICS)] cyclobenzaprine AdvReac Verified 01/09/18 19:35 [From Flexeril] gabapentin AdvReac Verified 01/09/18 19:35 Exam Vital signs and Labs for Last 24 Hours: Temp Pulse Resp BP Pulse Ox 97.9 F 91 H 20 157/84 92 L 01/10/18 08:00 01/10/18 08:00 01/10/18 10:09 01/10/18 08:00 01/10/18 08:00 Laboratory Results - last 24 hr 01/09/18 19:30: WBC 6.2, RBC 4.89, Hgb 14.2, Hct 44.2, MCV 90.4, MCH 29.1, MCHC 32.2, RDW 12.8, Plt Count 293, MPV 7.3 L, Neut % (Auto) 43.4, Lymph % (Auto) 33.0, [place] % (Auto) 6.7, Eos % (Auto) 15.4 H, Baso % (Auto) 1.5, Neut # (Auto) 2.7, Lymph # (Auto) 2.0, [place] # (Auto) 0.4, Eos # (Auto) 1.0 H, Baso # (Auto) 0.1 01/09/18 19:30: Troponin I < 0.02 01/09/18 19:30: Lactic Acid 0.3 L 01/09/18 19:30: Sodium 139, Potassium 3.8, Chloride 101, Carbon Dioxide 33 H, Anion Gap 8.8, BUN 13, Creatinine 1.02, Estimated Creat Clear 55, Estimated GFR 54 L, Est GFR ( Amer) 65, Glucose 102, Calcium 9.0 01/09/18 21:30: Troponin I < 0.02 01/10/18 00:30: Troponin I < 0.02 01/10/18 03:45: Sodium 137, Potassium 4.3, Chloride 103, Carbon Dioxide 29, Anion Gap 9.3, BUN 15, Creatinine 0.94, Estimated Creat Clear 57, Estimated GFR 59, Est GFR ( Amer) 72, Glucose 184 H D, Calcium 8.5, Troponin I < 0.02 01/10/18 03:45: WBC 3.7 L D, RBC 4.28, Hgb 14.2, Hct 38.6, MCV 90.4, MCH 33.2 H , MCHC 36.7 H, RDW 12.8, Plt Count 259, MPV 7.2 L, Neut % (Auto) 78.4, Lymph % ( Auto) 18.4, [place] % (Auto) 1.5 L, Eos % (Auto) 0.6, Baso % (Auto) 1.1, Neut # ( Auto) 2.9, Lymph # (Auto) 0.7, [place] # (Auto) 0.1, Eos # (Auto) 0.0, Baso # (Auto ) 0.0 I & O for Last 24 hours: Intake & Output 01/07/18 01/08/18 01/09/18 01/10/18 11:59 11:59 11:59 11:59 Intake Total 750 / 750 Balance 750 / 750 Weight 148 lb - Constitutional no acute distress, obese - *Routine HEENT Exam Head: Present: normocephalic Eye: Present: PERRL, exophthalmos (Mild) ENT: Present: mucous membranes moist, nares patent - *Routine Neck Exam Present: supple - Routine Chest/Breast/Axilla Exam Breast: Present: scars Axillae: Absent: mass - *Routine Respiratory Exam Present: rhonchi, wheezes, diminished air movement - *Routine Cardiovascular Exam Present: RRR - *Routine Abdominal Exam Present: soft. Absent: tenderness - *Routine Extremities Exam Present: edema (Only trace) - Routine Back/Spine/Pelvis Exam Back/Spine: Present: kyphosis - *Routine Skin Exam Present: intact - *Routine Neurological Exam Present: alert, oriented X3, CN II-XII intact. Absent: motor deficit - Routine Psychiatric Exam Present: normal affect, normal thought process H&P: Result - Labs Labs: Short CBC 01/09/18 01/10/18 Range/Units 19:30 03:45 WBC 6.2 3.7 L D (4.8-10.8) K/mm3 Hgb 14.2 14.2 (12.2-16.2) g/dL Hct 44.2 38.6 (37.0-47.0) % Plt Count 293 259 (142-424) K/mm3 BMP 01/09/18 01/10/18 19:30 03:45 Sodium 139 137 Potassium 3.8 4.3 Chloride 101 103 Carbon Dioxide 33 H 29 BUN 13 15 Creatinine 1.02 0.94 Glucose 102 184 H D Calcium 9.0 8.5 Cardiac Enzymes 01/09/18 01/09/18 01/10/18 Range/Units 19:30 21:30 00:30 Troponin I < 0.02 < 0.02 < 0.02 (0.00-0.06) ng/ml 01/10/18 Range/Units 03:45 Troponin I < 0.02 (0.00-0.06) ng/ml Assessment and Plan (1) Asthmatic bronchitis with acute exacerbation Current visit: Yes Status: Acute Category: Medical Code(s): J45.901 - Unspecified asthma with (acute) exacerbation (2) COPD exacerbation Current visit: No Status: Acute Category: Medical Code(s): J44.1 - Chronic obstructive pulmonary disease with (acute) exacerbation (3) Hypoxia Current visit: No Status: Acute Category: Medical Code(s): R09.02 - Hypoxemia (4) Anxiety Current visit: No Status: Chronic Category: Medical Code(s): F41.9 - Anxiety disorder, unspecified (5) Hypertension Current visit: No Status: Chronic Category: Medical Code(s): I10 - Essential (primary) hypertension (6) Type 2 diabetes mellitus Current visit: No Status: Chronic Category: Medical Code(s): E11.9 - Type 2 diabetes mellitus without complications - Assessment and plan all Dx Assessment and Plan for all problems:: See orders
--- NOTE | 2018-01-10 12:08 | Pharmacy Consult Notes ---
[facility] Pharmacy VTE Monitoring - Patient Demographics Admission date: 01/10/18 Report Date: 01/10/18 Time: 12:07 Allergies/Adverse Reactions: Patient Allergies Sulfa (Sulfonamide Antibiotics) [SULFA (SULFONAMIDE ANTIBIOTICS)] Allergy (Mild , Verified 08/29/17 18:48) cyclobenzaprine [From Flexeril] Adverse Reaction (Verified 01/09/18 19:35) gabapentin Adverse Reaction (Verified 01/09/18 19:35) Height: 1.55 m Weight: 67.132 kg Patient Problems: Current Active Problems Acute exacerbation of chronic obstructive airways disease (Acute) Asthmatic bronchitis with acute exacerbation (Acute) - VTE Risk Labs: VTE Related Lab Results Hgb 14.2 g/dL (12.2-16.2) 01/10/18 03:45 Hct 38.6 % (37.0-47.0) 01/10/18 03:45 Plt Count 259 K/mm3 (142-424) 01/10/18 03:45 BUN 15 mg/dL (7-18) 01/10/18 03:45 Creatinine 0.94 mg/dL (0.55-1.02) 01/10/18 03:45 Estimated Creat Clear 57 mL/min (0-300) 01/10/18 03:45 Was VTE Risk Assessment Performed: Yes VTE Score: 3 VTE Risk Level: Low Risk - Prophylaxis Types of VTE Prophylaxis: TEDS Knee High Location of Applied Device: Bilateral Lower Extremeties - VTE Diagnosis Confirmed Comment: CHANTALE HOSE ORDERED
[2018-01-11 07:33] LABS: Albumin Level 3.2 gm/dL (3.4-5.0); Anion Gap 14.6 mEq/L (5-15); Bilirubin,Total 0.2 mg/dL (0.2-1.0); Calcium 8.6 mg/dL (8.5-10.1); Globulin 3.3 gm/dl (1.3-3.2); Potassium 4.6 mmoL/L (3.5-5.1); Thyroid Stimulating Hormone 0.27 uIU/ml (0.358-3.740); Total Protein,Serum 6.5 gm/dL (6.4-8.2)
--- NOTE | 2018-01-11 08:21 | Progress Note ---
Internal Medicine - PN: Subj *Date: 01/11/18 *Time: 08:19 Interval history: She is better. She rested okay last night. Her breathing is easier with less wheezing. She has a tight cough which is occasionally productive. Exam Vital signs and Labs for Last 24 Hours: Temp Pulse Resp BP Pulse Ox 97.7 F 77 18 117/49 92 L 01/11/18 04:00 01/11/18 06:45 01/11/18 04:00 01/11/18 04:00 01/11/18 06:45 Laboratory Results - last 24 hr 01/11/18 06:42: Sodium 141, Potassium 4.6, Chloride 105, Carbon Dioxide 26, Anion Gap 14.6, BUN 29 H D, Creatinine 0.99, Estimated Creat Clear 57, Estimated GFR 56 L, Est GFR ( Amer) 67, Glucose 172 H, Calcium 8.6, Total Bilirubin 0.2, AST 8 L, ALT 12, Alkaline Phosphatase 90, Total Protein 6.5 , Albumin 3.2 L, Globulin 3.3 H, Albumin/Globulin Ratio 1.0 L, TSH 0.27 L I & O for Last 24 hours: Intake & Output 01/08/18 01/09/18 01/10/18 01/11/18 11:59 11:59 11:59 11:59 Intake Total 750 / 750 985 / 985 Output Total 300 / 300 Balance 750 / 750 685 / 685 Weight 148 lb 149 lb 0.026 oz - Constitutional no acute distress - *Routine Respiratory Exam Present: wheezes, diminished air movement Comments: She is actually moving air better. There are less wheezes. - *Routine Cardiovascular Exam Present: RRR - *Routine Extremities Exam Present: edema (Trace of leg edema) Assessment and Plan (1) Asthmatic bronchitis with acute exacerbation Current visit: Yes Status: Acute Category: Medical Code(s): J45.901 - Unspecified asthma with (acute) exacerbation (2) COPD exacerbation Current visit: No Status: Acute Category: Medical Code(s): J44.1 - Chronic obstructive pulmonary disease with (acute) exacerbation (3) Hypoxia Current visit: No Status: Acute Category: Medical Code(s): R09.02 - Hypoxemia (4) Anxiety Current visit: No Status: Chronic Category: Medical Code(s): F41.9 - Anxiety disorder, unspecified (5) Hypertension Current visit: No Status: Chronic Category: Medical Code(s): I10 - Essential (primary) hypertension (6) Type 2 diabetes mellitus Current visit: No Status: Chronic Category: Medical Code(s): E11.9 - Type 2 diabetes mellitus without complications - Assessment and plan all Dx Assessment and Plan for all problems:: Continue present regimen.
[2018-01-12 06:30] LABS: Basophils % 0.1 % (0.1-2.0); Eosinophils # 0.1 K/mm3 (0.0-0.4); Eosinophils % 0.5 % (0.1-12.0); Hematocrit 43.3 % (37.0-47.0); Hemoglobin 13.4 g/dL (12.2-16.2); Lymphocytes # 0.9 K/mm3 (0.7-4.5); Lymphocytes % 7.8 K/mm3 (10-50); Mean Corpuscular HGB Conc 30.9 g/dL (31.8-35.4); Mean Corpuscular Hemoglobin 28.6 pg (27.0-31.2); Mean Corpuscular Volume 92.4 fl (81-99); Mean Platelet Volume 7.7 fl (7.4-10.4); Monocytes # 0.3 K/mm3 (0.1-1.0); Monocytes % 2.7 % (1.7-9.3); Neutrophils # 10.4 K/mm3 (1.8-7.8); Platelet Count 320 K/mm3 (142-424); Red Blood Count 4.68 M/mm3 (4.20-5.40); Red Cell Distribution Width 12.9 % (11.5-17.5); White Blood Count 11.7 K/mm3 (4.8-10.8)
[2018-01-12 07:28] LABS: Anion Gap 12.6 mEq/L (5-15); Calcium 8.6 mg/dL (8.5-10.1); Potassium 4.6 mmoL/L (3.5-5.1)
--- NOTE | 2018-01-12 08:08 | Progress Note ---
Internal Medicine - PN: Subj *Date: 01/12/18 *Time: 08:05 Interval history: She did sleep some last night. Having periods of shortness of breath. Continues to have a productive cough. Continues to wheeze. She does ambulate in the room. She states she voids all the time. Bowels are moving. She is eating without difficulty. Exam Vital signs and Labs for Last 24 Hours: Temp Pulse Resp BP Pulse Ox 97.6 F 73 20 116/68 92 L 01/12/18 04:00 01/12/18 05:49 01/12/18 04:00 01/12/18 04:00 01/12/18 07:44 Laboratory Results - last 24 hr 01/12/18 05:24: WBC 11.7 H D, RBC 4.68, Hgb 13.4, Hct 43.3, MCV 92.4, MCH 28.6, MCHC 30.9 L, RDW 12.9, Plt Count 320, MPV 7.7, Neut % (Auto) 89.0 H, Lymph % ( Auto) 7.8 L, [place] % (Auto) 2.7, Eos % (Auto) 0.5, Baso % (Auto) 0.1, Neut # ( Auto) 10.4 H, Lymph # (Auto) 0.9, [place] # (Auto) 0.3, Eos # (Auto) 0.1, Baso # ( Auto) 0.0 01/12/18 05:24: Sodium 141, Potassium 4.6, Chloride 105, Carbon Dioxide 28, Anion Gap 12.6, BUN 38 H D, Creatinine 1.06 H, Estimated Creat Clear 56, Estimated GFR 52 L, Est GFR ( Amer) 62, Glucose 191 H, Calcium 8.6 I & O for Last 24 hours: Intake & Output 01/09/18 01/10/18 01/11/18 01/12/18 11:59 11:59 11:59 11:59 Intake Total 750 / 750 1345 / 1345 900 / 900 Output Total 300 / 300 1250 / 1250 Balance 750 / 750 1045 / 1045 -350 / -350 Weight 148 lb 149 lb 0.026 oz 155 lb Microbiology Reports for the Last 24 Hours: Microbiology 01/09/18 19:30 Blood Blood Culture - Preliminary NO GROWTH AFTER 48 HOURS 01/09/18 19:30 Blood Blood Culture - Preliminary NO GROWTH AFTER 48 HOURS - Constitutional no acute distress Comments: Sitting up in the bed and appears comfortable - *Routine Respiratory Exam Present: wheezes. Absent: accessory muscle use Comments: Bilateral wheezing anteriorly and posteriorly. Loose sounding cough. - *Routine Cardiovascular Exam Present: RRR - *Routine Abdominal Exam Present: soft, normoactive bowel sounds. Absent: tenderness, guarding - *Routine Extremities Exam Present: full ROM. Absent: edema, calf tenderness - *Routine Neurological Exam Present: alert, oriented X3 Conversant Assessment and Plan (1) Asthmatic bronchitis with acute exacerbation Current visit: Yes Status: Acute Category: Medical Code(s): J45.901 - Unspecified asthma with (acute) exacerbation (2) COPD exacerbation Current visit: No Status: Acute Category: Medical Code(s): J44.1 - Chronic obstructive pulmonary disease with (acute) exacerbation (3) Hypoxia Current visit: No Status: Acute Category: Medical Code(s): R09.02 - Hypoxemia (4) Anxiety Current visit: No Status: Chronic Category: Medical Code(s): F41.9 - Anxiety disorder, unspecified (5) Hypertension Current visit: No Status: Chronic Category: Medical Code(s): I10 - Essential (primary) hypertension (6) Type 2 diabetes mellitus Current visit: No Status: Chronic Category: Medical Code(s): E11.9 - Type 2 diabetes mellitus without complications - Assessment and plan all Dx Assessment and Plan for all problems:: Continue current treatment
[2018-01-12 09:24] LABS: Lymphocytes % 7 % (10-50); Monocytes % 2 % (2-9); Neutrophils % 91 % (42-76); RBC Morphology Normal; Total Cells Counted 100
--- NOTE | 2018-01-13 08:37 | Progress Note ---
<Shelly Steele - Last Filed: 01/13/18 09:12> Internal Medicine - PN: Subj *Date: 01/13/18 *Time: 09:12 Interval history: Patient states she feels fair this morning. She slept very little. Her breathing is unchanged. She continues to wheeze with nonproductive cough. She does ambulate in the room. She is eating without difficulty. She is incontinent of urine most of the time. Exam Vital signs and Labs for Last 24 Hours: Temp Pulse Resp BP Pulse Ox 98.5 F 88 20 157/89 92 L 01/13/18 07:40 01/13/18 07:40 01/13/18 07:40 01/13/18 07:40 01/13/18 07:40 Laboratory Results - last 24 hr 01/12/18 05:24: Total Counted 100, Neutrophils % (Manual) 91 H, Lymphocytes % ( Manual) 7 L, Monocytes % (Manual) 2, Platelet Estimate Normal, RBC Morphology Normal I & O for Last 24 hours: Intake & Output 01/10/18 01/11/18 01/12/18 01/13/18 11:59 11:59 11:59 11:59 Intake Total 750 / 750 1345 / 1345 1320 / 1320 1800 / 1800 Output Total 300 / 300 2000 / 2000 1400 / 1400 Balance 750 / 750 1045 / 1045 -680 / -680 400 / 400 Weight 148 lb 149 lb 0.026 oz 155 lb 152 lb - Constitutional no acute distress - *Routine Respiratory Exam Present: prolonged expiratory phase Comments: Bilateral inspiratory and expiratory wheezing. - *Routine Cardiovascular Exam Present: RRR - *Routine Abdominal Exam Present: soft, normoactive bowel sounds. Absent: tenderness - *Routine Extremities Exam Absent: edema, calf tenderness - *Routine Neurological Exam Present: alert, oriented X3 Assessment and Plan (1) Asthmatic bronchitis with acute exacerbation Current visit: Yes Status: Acute Category: Medical Code(s): J45.901 - Unspecified asthma with (acute) exacerbation (2) COPD exacerbation Current visit: No Status: Acute Category: Medical Code(s): J44.1 - Chronic obstructive pulmonary disease with (acute) exacerbation (3) Hypoxia Current visit: No Status: Acute Category: Medical Code(s): R09.02 - Hypoxemia (4) Anxiety Current visit: No Status: Chronic Category: Medical Code(s): F41.9 - Anxiety disorder, unspecified (5) Hypertension Current visit: No Status: Chronic Category: Medical Code(s): I10 - Essential (primary) hypertension (6) Type 2 diabetes mellitus Current visit: No Status: Chronic Category: Medical Code(s): E11.9 - Type 2 diabetes mellitus without complications - Assessment and plan all Dx Assessment and Plan for all problems:: Continue current care. Saline lock. Will repeat chest x-ray today. A.m. labs ordered. <Laura Reed - Last Filed: 01/13/18 09:30> Internal Medicine - PN: Subj *Date: 01/13/18 *Time: 09:29 Interval history: Hyperthyroidism should be added to the diagnosis Exam Vital signs and Labs for Last 24 Hours: Temp Pulse Resp BP Pulse Ox 98.5 F 88 20 157/89 92 L 01/13/18 07:40 01/13/18 07:40 01/13/18 07:40 01/13/18 07:40 01/13/18 07:40 I & O for Last 24 hours: Intake & Output 01/10/18 01/11/18 01/12/18 01/13/18 11:59 11:59 11:59 11:59 Intake Total 750 / 750 1345 / 1345 1320 / 1320 1800 / 1800 Output Total 300 / 300 2000 / 2000 1400 / 1400 Balance 750 / 750 1045 / 1045 -680 / -680 400 / 400 Weight 148 lb 149 lb 0.026 oz 155 lb 152 lb Assessment and Plan (1) Asthmatic bronchitis with acute exacerbation Current visit: Yes Status: Acute Category: Medical Code(s): J45.901 - Unspecified asthma with (acute) exacerbation (2) COPD exacerbation Current visit: No Status: Acute Category: Medical Code(s): J44.1 - Chronic obstructive pulmonary disease with (acute) exacerbation (3) Hypoxia Current visit: No Status: Acute Category: Medical Code(s): R09.02 - Hypoxemia (4) Anxiety Current visit: No Status: Chronic Category: Medical Code(s): F41.9 - Anxiety disorder, unspecified (5) Hypertension Current visit: No Status: Chronic Category: Medical Code(s): I10 - Essential (primary) hypertension (6) Type 2 diabetes mellitus Current visit: No Status: Chronic Category: Medical Code(s): E11.9 - Type 2 diabetes mellitus without complications (7) Hyperthyroidism Current visit: Yes Status: Acute Category: Medical Code(s): E05.90 - Thyrotoxicosis, unspecified without thyrotoxic crisis or storm
[2018-01-14 06:37] LABS: Basophils % 0.1 % (0.1-2.0); Eosinophils % 0.3 % (0.1-12.0); Hematocrit 45.7 % (37.0-47.0); Lymphocytes % 9.8 K/mm3 (10-50); Mean Corpuscular HGB Conc 30.6 g/dL (31.8-35.4); Mean Corpuscular Hemoglobin 28.3 pg (27.0-31.2); Mean Corpuscular Volume 92.5 fl (81-99); Mean Platelet Volume 7.4 fl (7.4-10.4); Monocytes # 0.4 K/mm3 (0.1-1.0); Neutrophils # 8.8 K/mm3 (1.8-7.8); Neutrophils % 85.8 % (37.0-80.0); Platelet Count 333 K/mm3 (142-424); Red Blood Count 4.94 M/mm3 (4.20-5.40); Red Cell Distribution Width 12.7 % (11.5-17.5); White Blood Count 10.2 K/mm3 (4.8-10.8)
[2018-01-14 07:15] LABS: Anion Gap 9.8 mEq/L (5-15); Calcium 8.4 mg/dL (8.5-10.1); Potassium 4.8 mmoL/L (3.5-5.1)
--- NOTE | 2018-01-14 07:40 | Progress Note ---
Internal Medicine - PN: Subj *Date: 01/14/18 *Time: 07:36 Interval history: States she feels this a.m. Breathing is somewhat better. She continues with a productive cough although she says this is less as well. She is eating better. She has been out of bed throughout the day. She did take a shower yesterday and did well. Chest x-ray did show infiltrate on the right. Exam Vital signs and Labs for Last 24 Hours: Temp Pulse Resp BP Pulse Ox 97.7 F 79 14 103/60 91 L 01/14/18 04:00 01/14/18 06:08 01/14/18 04:00 01/14/18 04:00 01/14/18 06:08 Laboratory Results - last 24 hr 01/14/18 05:27: WBC 10.2, RBC 4.94, Hgb 14.0, Hct 45.7, MCV 92.5, MCH 28.3, MCHC 30.6 L, RDW 12.7, Plt Count 333, MPV 7.4, Neut % (Auto) 85.8 H, Lymph % ( Auto) 9.8 L, [place] % (Auto) 4.0, Eos % (Auto) 0.3, Baso % (Auto) 0.1, Neut # ( Auto) 8.8 H, Lymph # (Auto) 1.0, [place] # (Auto) 0.4, Eos # (Auto) 0.0, Baso # ( Auto) 0.0 01/14/18 05:27: Sodium 139, Potassium 4.8, Chloride 104, Carbon Dioxide 30, Anion Gap 9.8, BUN 40 H, Creatinine 1.07 H, Estimated Creat Clear 56, Estimated GFR 51 L, Est GFR ( Amer) 62, Glucose 237 H, Calcium 8.4 L I & O for Last 24 hours: Intake & Output 01/11/18 01/12/18 01/13/18 01/14/18 11:59 11:59 11:59 11:59 Intake Total 1345 / 1345 1320 / 1320 2040 / 2040 600 / 600 Output Total 300 / 300 1999 / 1999 1400 / 1400 1999 / 1999 Balance 1045 / 1045 -680 / -680 640 / 640 -1400 / -1400 Weight 149 lb 0.026 oz 155 lb 152 lb 156 lb Radiology Reports for the Last 24 Hours: Chest x-ray 01/13/2018 IMPRESSION: Patchy infiltrate in the right midlung with small left effusion - Constitutional no acute distress Comments: Lying comfortably in the bed - *Routine Respiratory Exam Comments: Wheezing is less coarse. Continues bilaterally. - *Routine Cardiovascular Exam Present: RRR - *Routine Abdominal Exam Present: soft, normoactive bowel sounds - *Routine Extremities Exam Absent: edema, calf tenderness - *Routine Neurological Exam Present: alert, oriented X3 Assessment and Plan (1) Asthmatic bronchitis with acute exacerbation Current visit: Yes Status: Acute Category: Medical Code(s): J45.901 - Unspecified asthma with (acute) exacerbation (2) COPD exacerbation Current visit: No Status: Acute Category: Medical Code(s): J44.1 - Chronic obstructive pulmonary disease with (acute) exacerbation (3) Hypoxia Current visit: No Status: Acute Category: Medical Code(s): R09.02 - Hypoxemia (4) Anxiety Current visit: No Status: Chronic Category: Medical Code(s): F41.9 - Anxiety disorder, unspecified (5) Hypertension Current visit: No Status: Chronic Category: Medical Code(s): I10 - Essential (primary) hypertension (6) Type 2 diabetes mellitus Current visit: No Status: Chronic Category: Medical Code(s): E11.9 - Type 2 diabetes mellitus without complications (7) Hyperthyroidism Current visit: Yes Status: Acute Category: Medical Code(s): E05.90 - Thyrotoxicosis, unspecified without thyrotoxic crisis or storm - Assessment and plan all Dx Assessment and Plan for all problems:: Possibly home today. Discussed taking her medicine on a regular basis as prescribed and using inhalers.
[2018-01-14 09:57] LABS: Lymphocytes % 11 % (10-50); Monocytes % 1 % (2-9); Neutrophils % 86 % (42-76); Total Cells Counted 100
[2018-01-14 09:58] LABS: RBC Morphology Normal
--- NOTE | 2018-01-14 14:29 | Discharge Summary ---
General - General Admission date:: 01/09/18 Discharge date: 01/14/18 HPI HPI: This 67-year-old white female has long-standing chronic obstructive lung disease and asthmatic bronchitis. She states that she has been sick for 5 days and did not have the money to come to be seen in the office. She presented in the emergency room last night with shortness of breath and wheezing. She was found to have an exacerbation of her asthmatic bronchitis and chronic lung disease. She was admitted for further evaluation and treatment. She has a productive cough. She has not had fever. She has had some upper respiratory congestion and irritated throat but mainly this is been a chest problem. She has numerous similar episodes in the past. Hospital Course Hospital Course: The patient was started on nebs, abx, and steroids. Her TSH was found to be slightly suppressed at 0.24 indicating possible mild hyperthyroidism. She had a repeat CXR showing a patchy infiltrate in the right midlung with a small left effusion. She did improve throughout her stay and was stable to be discharged home on prednisone, keflex, and Breo. She was also encouraged to use her inhalers and take her medication on a regular basis. She will f/u in the office. Objective Vital signs: Temp Pulse Resp BP Pulse Ox 97.0 F L 90 16 137/83 94 L 01/14/18 07:48 01/14/18 07:48 01/14/18 07:48 01/14/18 07:48 01/14/18 07:48 Narrative: - Constitutional no acute distress, obese - *Routine HEENT Exam Head: Present: normocephalic Eye: Present: PERRL, exophthalmos (Mild) ENT: Present: mucous membranes moist, nares patent - *Routine Neck Exam Present: supple - Routine Chest/Breast/Axilla Exam Breast: Present: scars Axillae: Absent: mass - *Routine Respiratory Exam Present: rhonchi, wheezes, diminished air movement - *Routine Cardiovascular Exam Present: RRR - *Routine Abdominal Exam Present: soft. Absent: tenderness - *Routine Extremities Exam Present: edema (Only trace) - Routine Back/Spine/Pelvis Exam Back/Spine: Present: kyphosis - *Routine Skin Exam Present: intact - *Routine Neurological Exam Present: alert, oriented X3, CN II-XII intact. Absent: motor deficit - Routine Psychiatric Exam Present: normal affect, normal thought process Results Labs on day of discharge: Labs from last 24 hours 01/14/18 01/14/18 05:27 05:27 WBC 10.2 RBC 4.94 Hgb 14.0 Hct 45.7 MCV 92.5 MCH 28.3 MCHC 30.6 L RDW 12.7 Plt Count 333 MPV 7.4 Neut % (Auto) 85.8 H Lymph % (Auto) 9.8 L [place] % (Auto) 4.0 Eos % (Auto) 0.3 Baso % (Auto) 0.1 Neut # (Auto) 8.8 H Lymph # (Auto) 1.0 [place] # (Auto) 0.4 Eos # (Auto) 0.0 Baso # (Auto) 0.0 Total Counted 100 Neutrophils % (Manual) 86 H Lymphocytes % (Manual) 11 Atypical Lymphs % 2.0 Monocytes % (Manual) 1 L Platelet Estimate Normal RBC Morphology Normal Sodium 139 Potassium 4.8 Chloride 104 Carbon Dioxide 30 Anion Gap 9.8 BUN 40 H Creatinine 1.07 H Estimated Creat Clear 56 Estimated GFR 51 L Est GFR ( Amer) 62 Glucose 237 H Calcium 8.4 L Preliminary micro results at discharge 01/09/18 19:30 Blood Culture - Preliminary Blood NO GROWTH AFTER 48 HOURS 01/09/18 19:30 Blood Culture - Preliminary Blood NO GROWTH AFTER 48 HOURS DS: Diagnosis - Discharge Diagnosis (1) Asthmatic bronchitis with acute exacerbation Status: Acute (2) COPD exacerbation Status: Acute (3) Hypoxia Status: Acute (4) Anxiety Status: Chronic (5) Hypertension Status: Chronic (6) Type 2 diabetes mellitus Status: Chronic (7) Hyperthyroidism Status: Acute Discharge Plan - Patient Discharge Instructions ACTIVITY: Limited activity DIET: continue same diet Patient Instructions: Chronic Obstructive Pulmonary Disease - Follow up Plan Follow up with: Laura Reed MD [Primary Care Provider] - 1 week Disposition: Home, Self-Alf Medications: Home Medications Medication Instructions Recorded Confirmed Type Aspirin [Aspir 81] 81 mg PO DAILY 09/01/17 01/09/18 History Furosemide [Lasix 40mg tablet] 40 mg PO DAILY 01/09/18 01/09/18 History Losartan Potassium 25 mg PO DAILY 01/09/18 01/09/18 History Prescriptions/Medication Reconciliation: New Fluticasone/Vilanterol [Breo Ellipta 200-25 Mcg INH] 1 each IH DAILY 30 Days blst.w.dev predniSONE [Deltasone 10mg tablet] 10 mg PO DAILY 30 Days #30 tab cephALEXin [Keflex 500mg Cap] 500 mg PO TID #20 cap No Action Aspirin [Aspir 81] 81 mg PO DAILY Ipratropium/Albuterol Sulfate [Duoneb 3mL neb] 3 ml IH TIDP PRN #90 ampul.neb PRN Reason: shortness of breath Furosemide [Lasix 40mg tablet] 40 mg PO DAILY diazePAM [diazePAM 5mg Tablet] 5 mg PO TIDP PRN #90 tab PRN Reason: Anxiety Losartan Potassium 25 mg PO DAILY
== END 2018-01-14 11:40 | disposition home or self-care (01) ==
LOC: ER 19:06 → 2ND 20:56
PROVIDERS: ADMIT Family Medicine; ATTEND Family Medicine

== ENCOUNTER → 2018-01-22 14:14 | Outpatient (CLI) | payer SELFPAY | PROVIDERS: PCP Family Medicine; Visit Provider Family Medicine | DX: I49.9 Cardiac arrhythmia, unspecified (principal) | CPT/HCPCS: 93005 ==

== ENCOUNTER 2020-08-15 11:43 | Emergency (ER) | payer OTHER, SELFPAY ==
[2020-08-15 12:00] VITALS: BMI 32.1
[2020-08-15 12:10] VITALS: BP 154/90; PULSE 105; RESP 16; TEMP 36.3; O2SAT 91; BMI 32.1
--- NOTE | 2020-08-15 12:34 | HMH.EDUTC ---
[facility] [place] Disposition Clinical Impression: COPD exacerbation, Rib pain, Pleurisy Disposition: Home, Self-Care Condition on Discharge: Good Instructions: DI for Chronic Obstructive Pulmonary Disease, DI for Pleurisy Additional Instructions: Drink plenty of fluids. Take tylenol for pain or fever. Return if you begin to have difficulty breathing. Follow up with your regular doctor. GO TO THE ER FOR ANY WORSENING SYMPTOMS Don't start the oral prednisone until tomorrow, since Hold the steroids that you take regularly while you are on the prednisone taper dose. Prescriptions: predniSONE [Deltasone 10mg tablet] 10 mg PO DAILY 9 Days #21 tab Transmission Status: Received by [facility] Benzonatate [Tessalon Perle 100mg Cap] 100 mg PO TIDP PRN #30 cap PRN Reason: Cough Transmission Status: Received by [facility] [employer] Azithromycin [Z-Solitario 250mg Tab*] 250 mg PO UD DOSE PK #6 tab Transmission Status: Re[facility] by [facility] Referrals: Mina Onofre MD [Primary Care Provider] - Time of Disposition: 12:38 Medical Decision Making - Medical Records Medical records reviewed: No: I reviewed the patient's medical records. - Mikal Inquiry Pt receiving controlled substance: No Vital Signs: 08/15/20 12:10 08/15/20 12:48 Temperature 97.3 F L 97.3 F L Temperature Source Oral Pulse Rate 105 H Pulse Rate [Right Brachial] 105 H Respiratory Rate 16 16 Blood Pressure 154/90 H Blood Pressure [Right Arm] 154/90 H Blood Pressure Mean [Right Arm] 111 Blood Pressure Source [Right Arm] Automatic Cuff Blood Pressure Position [Right Arm] Sitting 02 Sat by Pulse Oximetry 91 L Oxygen Delivery Method Room Air Orders (Tests/Meds): ED MEDICATIONS Discontinued Medications Generic Name Dose Route Start Last Admin Trade Name Freq PRN Reason Stop Dose Admin Ketorolac Tromethamine 30 mg 08/15/20 12:15 08/15/20 12:25 Ketorolac 30mg/Ml Vial IM 08/15/20 12:16 30 mg ONCE ONE Administration Methylprednisolone Sodium Succinate 125 mg 08/15/20 12:15 08/15/20 12:25 Methylprednisolone Sod Succ 125mg Vial IM 08/15/20 12:16 125 mg ONCE ONE Administration [facility] [place] HPI - General Stated complaint: rib pain Time Seen by Provider: 08/15/20 12:34 Mode of Arrival: Ambulatory Source of Information: Patient Limitations: No Limitations Description of Symptoms (Recalled from Triage Doc. by RN): PATIENT C/O BACK AND BILATERAL RIB PAIN, SOA HEENT Symptoms (Recalled from RN notes): No Resp Symptoms (Recalled from RN notes): No Skin Symptoms (Recalled from RN notes): No MS Symptoms (Recalled from RN notes): No Functional Status (Recalled from RN notes): WNL - History of Present Illness Provider Complaint: She states that for the past couple of days she has had bilateral rib pain when she coughs or deep breathes. She denies any injury. She denies any worsening shortness of breath and she denies any covid-19 exposure. - Related Data Home Medications Medication Instructions Recorded Confirmed Aspirin [Aspir 81] 81 mg PO DAILY 09/01/17 01/09/18 Furosemide [Lasix 40mg tablet] 40 mg PO DAILY 01/09/18 01/09/18 Losartan Potassium 25 mg PO DAILY 01/09/18 01/09/18 Previous Rx's Medication Instructions Recorded Ipratropium/Albuterol Sulfate 3 ml IH TIDP PRN #90 ampul.neb 09/02/17 [Duoneb 3mL neb] diazePAM [diazePAM 5mg Tablet] 5 mg PO TIDP PRN #90 tab 09/02/17 Fluticasone/Vilanterol [Breo 1 each IH DAILY 30 Days blst.w.dev 01/14/18 Ellipta 200-25 Mcg INH] cephALEXin [Keflex 500mg Cap] 500 mg PO TID #20 cap 01/14/18 predniSONE [Deltasone 10mg tablet] 10 mg PO DAILY 30 Days #30 tab 01/14/18 Nitrofurantoin Monohyd/M-Cryst 100 mg PO BID 10 Days #20 cap 04/28/19 [Macrobid 100 mg Capsule] ondansetron HCL [Zofran 4mg Tab] 4 mg PO Q6H PRN 10 Days #40 tab 04/28/19 Azithromycin [Z-Solitario 250mg Tab*] 250 mg PO UD DOSE PK #6 tab 08/15/20 Benzonatate [Tessalo
[2020-08-15 12:48] VITALS: BP 154/90; PULSE 105; RESP 16; TEMP 36.3; O2SAT 91
== END 2020-08-15 12:48 | disposition home or self-care (01) ==
PROVIDERS: Emergency Provider Nurse Practitioner Family; PCP Family Medicine
DX: J44.1 Chronic obstructive pulmonary disease with (acute) exacerbation (principal); R07.81 Pleurodynia; R09.1 Pleurisy; I10 Essential (primary) hypertension; M81.0 Age-related osteoporosis without current pathological fracture; E11.9 Type 2 diabetes mellitus without complications; Z88.2 Allergy status to sulfonamides; Z79.899 Other long term (current) drug therapy
CPT/HCPCS: 96372; 99202; G0463

== ENCOUNTER → 2020-08-25 10:59 | Outpatient (CLI) | payer OTHER, SELFPAY ==
[2020-08-25 11:18] LABS: Basophils # 0.1 K/mm3 (0-0.2); Basophils % 0.6 % (0.1-2.0); Eosinophils # 0.1 K/mm3 (0.0-0.4); Eosinophils % 1.1 % (0.1-12.0); Hematocrit 46.4 % (37.0-47.0); Hemoglobin 14.6 g/dL (12.2-16.2); Lymphocytes # 2.6 K/mm3 (0.7-4.5); Lymphocytes % 25.4 % (10-50); Mean Corpuscular HGB Conc 31.4 g/dL (31.8-35.4); Mean Corpuscular Hemoglobin 29.7 pg (27.0-31.2); Mean Corpuscular Volume 94.6 fl (81-99); Monocytes # 0.3 K/mm3 (0.1-1.0); Monocytes % 2.7 % (1.7-9.3); Neutrophils # 7.2 K/mm3 (1.8-7.8); Neutrophils % 70.3 % (37.0-80.0); Platelet Count 395 K/mm3 (142-424); Red Blood Count 4.91 M/mm3 (4.20-5.40); Red Cell Distribution Width 12.9 % (11.5-17.5); White Blood Count 10.2 K/mm3 (4.8-10.8)
[2020-08-25 11:40] LABS: Chloride 99 mmol/L (98-107); Potassium 4.7 mmoL/L (3.5-5.1); Sodium 137 mmol/L (136-145)
[2020-08-25 11:43] LABS: Alanine Aminotransferase 20 U/L (12-78); Albumin Level 4.7 g/dl (3.5-5.0); Albumin/Globulin Ratio 1.7 (1.1-1.8); Alkaline Phosphatase 108 U/L (38-126); Anion Gap 10.7 mEq/L (5-15); Aspartate Amino Transferase 22 U/L (14-36); Blood Urea Nitrogen 24 mg/dl (7-17); Carbon Dioxide 32 mmol/L (22.0-30.0); Estimated Glomerular Filt Rate 62 ml/min (>60); GFR (African American) 75 ML/MIN (>60); Globulin 2.7 g/dL (1.3-3.2); Glucose 160 mg/dl (74-100); Total Protein,Serum 7.4 g/dl (6.3-8.2)
== END ==
PROVIDERS: Visit Provider Family Medicine
DX: R73.9 Hyperglycemia, unspecified (principal)
CPT/HCPCS: 36415; 80053; 85025

== ENCOUNTER 2020-10-11 12:06 | Emergency (ER) | payer OTHER, SELFPAY ==
[2020-10-11 12:09] VITALS: BP 144/78; PULSE 87; RESP 21; TEMP 36.6; O2SAT 93; BMI 29.2
--- NOTE | 2020-10-11 12:31 | HMH.EDUTC ---
[facility] [place] Clinical Impression: Pleurisy, COPD exacerbation Disposition: Home, Self-Care Condition on Discharge: Good Instructions: Chronic Obstructive Pulmonary Disease (Alternative Therapy), DI for Pleurisy Additional Instructions: Take medications as prescribed Follow up with your Family Doctor if no improvement or any worsening of symptoms Return if needed Straight to ER if any life threatening symptoms Prescriptions: predniSONE [Deltasone 10mg tablet] 10 mg PO DAILY 4 Days #4 tab Transmission Status: Received by [facility] Azithromycin [Z-Solitario 250mg Tab] 250 mg PO DIRECTED #6 tab Transmission Status: Received by [facility] Referrals: Mina Onofre MD [Primary Care Provider] - As needed Time of Disposition: 12:44 Medical Decision Making - iMkal Inquiry Pt receiving controlled substance: No Mikal was queried for this patient: No Vital Signs: 10/11/20 12:09 10/11/20 12:50 Temperature 98 F 98 F Temperature Source Oral Pulse Rate 84 Pulse Rate [Right] 87 Respiratory Rate 21 20 Blood Pressure 139/76 Blood Pressure [Right Arm] 144/78 H Blood Pressure Mean [Right Arm] 100 Blood Pressure Source [Right Arm] Automatic Cuff Blood Pressure Position [Right Arm] Sitting 02 Sat by Pulse Oximetry 93 L Oxygen Delivery Method Room Air Medical Decision Narrative: Medications discussed with pharmacy [facility] [place] HPI - General Stated complaint: back and shoulder pain, no accident Time Seen by Provider: 10/11/20 12:31 Mode of Arrival: Ambulatory Source of Information: Patient Limitations: No Limitations Description of Symptoms (Recalled from Triage Doc. by RN): pt states, I think I have pleurisy. pt states it hurts to breathe. HEENT Symptoms (Recalled from RN notes): No Resp Symptoms (Recalled from RN notes): Yes (hurts to breathe) Skin Symptoms (Recalled from RN notes): No MS Symptoms (Recalled from RN notes): No Functional Status (Recalled from RN notes): na - History of Present Illness Provider Complaint: Patient state that she has a history of pleurisy States that she recently had it back in July and feels like she did then States that she has pain in her right ribs in the back when she coughs or takes a deep breath States that she has been taking over the counter Advil but hasnt helped much and she has a history of COPD - Related Data Home Medications Medication Instructions Recorded Confirmed Aspirin [Aspir 81] 81 mg PO DAILY 09/01/17 01/09/18 Furosemide [Lasix 40mg tablet] 40 mg PO DAILY 01/09/18 01/09/18 Losartan Potassium 25 mg PO DAILY 01/09/18 01/09/18 Previous Rx's Medication Instructions Recorded Ipratropium/Albuterol Sulfate 3 ml IH TIDP PRN #90 ampul.neb 09/02/17 [Duoneb 3mL neb] diazePAM [diazePAM 5mg Tablet] 5 mg PO TIDP PRN #90 tab 09/02/17 Fluticasone/Vilanterol [Breo 1 each IH DAILY 30 Days blst.w.dev 01/14/18 Ellipta 200-25 Mcg INH] cephALEXin [Keflex 500mg Cap] 500 mg PO TID #20 cap 01/14/18 predniSONE [Deltasone 10mg tablet] 10 mg PO DAILY 30 Days #30 tab 01/14/18 Nitrofurantoin Monohyd/M-Cryst 100 mg PO BID 10 Days #20 cap 04/28/19 [Macrobid 100 mg Capsule] ondansetron HCL [Zofran 4mg Tab] 4 mg PO Q6H PRN 10 Days #40 tab 04/28/19 Azithromycin [Z-Solitario 250mg Tab*] 250 mg PO UD DOSE PK #6 tab 08/15/20 Benzonatate [Tessalon Perle 100mg 100 mg PO TIDP PRN #30 cap 08/15/20 Cap] predniSONE [Deltasone 10mg tablet] 10 mg PO DAILY 9 Days #21 tab 08/15/20 Azithromycin [Z-Solitario 250mg Tab] 250 mg PO DIRECTED #6 tab 10/11/20 predniSONE [Deltasone 10mg tablet] 10 mg PO DAILY 4 Days #4 tab 10/11/20 Allergies Allergy/AdvReac Type Severity Reaction Status Date / Time Sulfa (Sulfonamide Allergy Mild Verified 10/11/20 12:08 Antibiotics) [SULFA (SULFONAMIDE ANTIBIOTICS)] cephalexin [From Keflex] Allergy Verified 10/11/20 12:08 cyclobenzaprine AdvReac Verified 10/11/20 12:08 [From Flexeril] gabap
[2020-10-11 12:50] VITALS: BP 139/76; PULSE 84; RESP 20; TEMP 36.6
== END 2020-10-11 12:52 | disposition home or self-care (01) ==
PROVIDERS: Emergency Provider Nurse Practitioner; PCP Family Medicine
DX: R09.1 Pleurisy (principal); J44.1 Chronic obstructive pulmonary disease with (acute) exacerbation; E11.9 Type 2 diabetes mellitus without complications; I10 Essential (primary) hypertension; M81.0 Age-related osteoporosis without current pathological fracture; Z79.899 Other long term (current) drug therapy
CPT/HCPCS: 99202; G0463

== ENCOUNTER 2021-10-26 09:37 | Emergency (ER) | payer SELFPAY ==
[2021-10-26 09:38] VITALS: BP 121/78; PULSE 104; RESP 20; TEMP 36.7; O2SAT 96; BMI 28.3
--- NOTE | 2021-10-26 09:39 | HMH.EDSOB ---
ED Disposition Clinical Impression: COPD exacerbation Strain of chest wall Qualifiers: Encounter type: initial encounter Qualified Code(s): S29.011A - Strain of muscle and tendon of front wall of thorax, initial encounter Disposition: Home, Self-Care Condition on Discharge: Fair Instructions: DI for Chronic Obstructive Pulmonary Disease Additional Instructions: Your work-up today in the emergency department and not reveal any life-threatening or dangerous causes for your symptoms. There is no evidence of rib fractures, pneumonia or pneumothorax. Please return to the emergency department if you feel worse in any way. Follow-up with your primary care physician within the next few days if you do not feel better. Referrals: Mina Onofre MD [Primary Care Provider] - Time of Disposition: 11:33 - Critical Care Critical Care Time: No Attestation: On , the high probability of a clinically significant, sudden or life threatening deterioration of the following system(s) required my full and direct attention, intervention and personal management. The time I documented below is in addition to time spent performing reported procedures but includes the following listed in this critical care notation. Medical Decision Making - Medical Records Medical records reviewed: Yes: I reviewed the patient's medical records. - Mikal Inquiry Pt receiving controlled substance: No Mikal was queried for this patient: No Vital Signs: 10/26/21 09:38 10/26/21 09:46 10/26/21 10:00 Temperature 98.0 F Temperature Source Oral Pulse Rate 85 85 Pulse Rate [Right] 104 H Respiratory Rate 20 14 16 Blood Pressure 121/78 109/74 L Blood Pressure [Right Arm] 121/78 Blood Pressure Mean 95 85 Blood Pressure Mean [Right Arm] 92 Blood Pressure Source [Right Arm] Automatic Cuff Blood Pressure Position [Right Arm] Sitting 02 Sat by Pulse Oximetry 96 96 96 Oxygen Delivery Method Nasal Cannula Nasal Cannula Nasal Cannula Oxygen Flow Rate (LPM) 2 2 2 10/26/21 10:03 Temperature Temperature Source Pulse Rate 80 Pulse Rate [Right] Respiratory Rate Blood Pressure Blood Pressure [Right Arm] Blood Pressure Mean Blood Pressure Mean [Right Arm] Blood Pressure Source [Right Arm] Blood Pressure Position [Right Arm] 02 Sat by Pulse Oximetry Oxygen Delivery Method Oxygen Flow Rate (LPM) Orders (Tests/Meds): ED MEDICATIONS Discontinued Medications Generic Name Dose Route Start Last Admin Trade Name Freq PRN Reason Stop Dose Admin Albuterol/Ipratropium 3 ml 10/26/21 09:49 10/26/21 10:01 Ipratropium/Albuterol 3 Ml Neb IH 10/26/21 09:50 3 ml ONCE ONE Administration - Radiology Data #1 Image(s): Chest Image Reviewed: Yes I reviewed the patient's radiology results, Yes I reviewed the patient's radiology image, Yes I have reviewed radiologist's interpretation Preliminary Findings: Abnormal (Unchanged from previous. No evidence of acute disease.) Medical Decision Narrative: The patient presents to the emergency department complaining of left-sided chest pain that began after coughing. Pain is reproducible with palpation. The patient's x-ray is unremarkable. Feel that the patient can be discharged in stable condition. Resp/SOB HPI - General Stated Complaint: possible fractured rib coughing, soa Time Seen by Provider: 10/26/21 09:40 Mode of Arrival: Wheelchair Source of Information: Patient Limitations: No Limitations - History of Present Illness The patient presents to the emergency department complaining of left sided chest pain that began after she started coughing about 5 days ago. The pain is constant and worse with movement and inspirations and cough. It is not dull in nature. Patient believes that she may have broken a rib because it feels exactly the same as when she broke her rib in the past. She denies any trauma. MD Complaint: shortness of breath, cough Onset (ago)
[2021-10-26 09:46] VITALS: BP 121/78; PULSE 85; RESP 14; O2SAT 96
--- NOTE | 2021-10-26 09:49 | XR_ITS ---
FINAL REPORT CLINICAL HISTORY: Left rib pain and cough, soa, copd COMPARISON: 04/28/2019 FINDINGS: Two views of the chest were obtained. The heart is normal in size. There is mild pulmonary vascular congestion, stable from previous The mediastinum is normal. There is mild left base atelectasis. There is no pneumothorax. The bony thorax is intact. IMPRESSION: Mild left base atelectasis. Reviewed, Interpreted and Dictated by Delbert Ashby III, MD Transcribed by Shelly Kohli Authenticated by Delbert Ashby III, MD on 10/26/2021 11:11:48 AM [facility]
[2021-10-26 10:00] VITALS: BP 109/74; PULSE 85; RESP 16; O2SAT 96
--- NOTE | 2021-10-26 10:02 | PC.NURSE ---
Resp at bedside
[2021-10-26 10:03] VITALS: PULSE 80; PULSE 82
--- NOTE | 2021-10-26 10:34 | PC.NURSE ---
Rounded on pt at this time, advises she feels a little better after the breathing treatment. No other needs at this time
--- NOTE | 2021-10-26 11:17 | PC.NURSE ---
Advised pt we were waiting on MD to review chest x-ray. No new needs at this time
[2021-10-26 11:49] VITALS: BP 110/60; PULSE 65; RESP 18; TEMP 36.7; O2SAT 97
== END 2021-10-26 11:50 | disposition home or self-care (01) ==
PROVIDERS: Emergency Provider Emergency Medicine; PCP Family Medicine
DX: S29.011A Strain of muscle and tendon of front wall of thorax, initial encounter (principal); J45.909 Unspecified asthma, uncomplicated; E11.9 Type 2 diabetes mellitus without complications; I10 Essential (primary) hypertension; Z99.81 Dependence on supplemental oxygen; Z79.899 Other long term (current) drug therapy
CPT/HCPCS: 71046; 99283